=== PATIENT | female | born 1965 | race African-American/Black ===

== ENCOUNTER 2023-09-05 19:34 | Emergency (ER) | payer BC ==
[2023-09-05] MEDS ORDERED: Fluorescein Opthalmic Strip ONE (20:12)
[2023-09-05] MEDS ORDERED: Proparacaine 0.5% Opth 15 ML BOT ONE (20:12)
== END 2023-09-05 20:50 | disposition home or self-care (01) ==
LOC: CSHERS 19:34
DX: H57.8A1 Foreign body sensation, right eye (principal); I10 Essential (primary) hypertension; F17.200 Nicotine dependence, unspecified, uncomplicated
CPT/HCPCS: 99283